=== PATIENT | male | born 1945 | race Caucasian/White ===

== ENCOUNTER 2017-01-25 23:30 | Inpatient (IN) | payer MEDICARE, OTHER ==
[~2017-01-25] VITALS: Ht 188 cm; Wt 125.4 kg
[~2017-01-25 23:30] MED LIST: AMLO10 PO; CALTTAB2 PO; COMBAER INH; CYANCRY6 SQ; FORACAP INH; LANTUSP SQ; MONT10TA2 PO; POTA-243 PO; PRED5 PO; PROT40TA PO; THEO300T11 PO; VITA400C28 PO
[2017-01-25 23:36] VITALS: BP 158/74; PULSE 106; RESP 18; TEMP 98.7; O2SAT 90; O2SAT 96
[2017-01-25] MEDS ORDERED: AMLO10TA2 PO (23:49)
[2017-01-25] MEDS ORDERED: PROT40TA PO (23:49)
[2017-01-25] MEDS ORDERED: IPRAAER INH (23:49)
[2017-01-25] MEDS ORDERED: CYAN1000P SQ (23:49)
[2017-01-25] MEDS ORDERED: POTA10TA8 PO (23:49)
[2017-01-25] MEDS ORDERED: CALTTAB PO (23:49)
[2017-01-25] MEDS ORDERED: MONT10TA2 PO (23:49)
[2017-01-25] MEDS ORDERED: FORM20NE INH (23:49)
[2017-01-25] MEDS ORDERED: THEO300T4 PO (23:49)
[2017-01-25] MEDS ORDERED: VITA400T2 PO (23:49)
[2017-01-25] MEDS ORDERED: PRED5TAB PO (23:49)
[2017-01-26] VITALS (18 sets, daily range): BP systolic 141–165; BP diastolic 64–77; PULSE 73–96; RESP 18–23; TEMP 98.2–98.9; O2SAT 90–95
--- NOTE | 2017-01-26 00:25 | PD ---
HPI Chief Complaint: General Weakness Time Seen by Provider: 00:13 Travel History International Travel<30 days: No Contact w/Intl Traveler<30days: No Traveled to known affect area: No History of Present Illness HPI 71-year-old male complains of shortness of breath. Patient has history of COPD. Patient is a smoker. Patient states that he started having shortness of breath for the past several days. Patient states that the shortness of breath got progressively worse since then. Patient states that he has an inhaler and nebulizer machine at home. Patient used inhaler once in a while and last use of nebulizer machine was yesterday. Patient states that he hasn't intermittent dry cough. Patient denies any fever chills. Patient denies any headache. Patient denies any chest pain. Patient denies abdominal pain. Patient denies any focal weakness or numbness of extremity. Patient complained of generalized malaise and weakness. Patient had a near syncopal episode tonight at home. PFSH Past Medical History Arthritis: No Asthma: No Autoimmune Disease: No Blood Disorders: No Anxiety: No Depression: No Heart Rhythm Problems: No Cancer: Yes (PROSTATE) Cardiovascular Problems: No High Cholesterol: No Chemotherapy: No Chest Pain: No Congestive Heart Failure: No COPD: Yes Cerebrovascular Accident: No Diabetes: No Diminished Hearing: No Endocrine: No Gastrointestinal Disorders: Yes GERD: No Glaucoma: No Genitourinary: No Headaches: No Hepatitis: No Hiatal Hernia: No Hypertension: Yes Immune Disorder: No Kidney Stones: No Musculoskeletal: Yes (SPINE SURGERY. LEFT KNEE SURGERY) Neurologic: No Psychiatric: No Reproductive: No Respiratory: Yes Migraines: No Myocardial Infarction: No Radiation Therapy: Yes (01/2009) Renal Failure: No Seizures: No Sickle Cell Disease: No Sleep Apnea: No Thyroid Disease: No Ulcer: No PNEUMOCCOCAL Vaccine (Year): 2007 Past Surgical History Abdominal Surgery: No AICD: No Appendectomy: No Arteriovenous Shunt: No Cardiac Surgery: No Cholecystectomy: No Ear Surgery: No Endocrine Surgery: No Eye Surgery: No Genitourinary Surgery: No Gynecologic Surgery: No Insulin Pump: No Joint Replacement: No Oral Surgery: No Pacemaker: No Thoracic Surgery: No Social History Alcohol Use: No Tobacco Use: Yes (6 CIGS/DAY) Substance Use: No Allergies-Medications (Allergen,Severity, Reaction): Coded Allergies: VIKY Inhibitors (Verified Allergy, Severe, ANGIOEDEMA, 4/20/17) Felodipine (Verified Allergy, Severe, Anaphylaxis, 01/25/17) Hytrin (Verified Allergy, Severe, Anaphylaxis, 01/25/17) Lisinopril (Verified Allergy, Severe, Anaphylaxis, 01/25/17) Reported Meds & Prescriptions Reported Meds & Active Scripts Active Reported Caltrate 600+D (Calcium Carbonate-Cholecalciferol) 600-800 Mg-Unit Tab 1 Tab PO BID Theophylline CR (Theophylline) 300 Mg Tab 300 Mg PO DAILY Prednisone 5 Mg Tab 5 Mg PO DAILY Potassium Chloride CR (Potassium Chloride) 10 Meq Tab 10 Meq PO DAILY Protonix (Pantoprazole Sodium) 40 Mg Tab 40 Mg PO DAILY Singulair (Montelukast Sodium) 10 Mg Tab 10 Mg PO HS Combivent Respimat Inh (Ipratropium-Albuterol Inh) 20-100 Jail/Act Aero 2 Puff INH BID Perforomist Neb (Formoterol Fumarate) 20 Mcg/2 Ml Neb 1 Nebule INH BID Cyanocobalamin Inj (Cyanocobalamin) 1,000 Mcg/Ml Inj 1,000 Mcg SQ Q30D Vitamin D (Cholecalciferol) 400 Unit Tab 400 Mg PO DAILY Amlodipine (Amlodipine Besylate) 10 Mg Tab 10 Mg PO DAILY Review of Systems General / Constitutional: No: Fever Eyes: No: Visual changes HENT: No: Headaches Cardiovascular: No: Chest Pain or Discomfort Respiratory: Positive: Cough, Shortness of Breath, Wheezing Gastrointestinal: No: Abdominal Pain Genitourinary: No: Dysuria Musculoskeletal: No: Pain Skin: No Rash Neurologic: No: Weakness Psychiatric: No: Depression Endocrine: No: Polydipsia Hematologic/Lymphatic: No: Easy Bruising Physical Exam Narrative GENERAL: Well-nourished, well-developed patient. SKIN: Focused skin assessment warm/dry. HEAD: Normocephalic. EYES: No scleral icterus. No injection or drainage. NECK: Supple, trachea midline. No JVD or lymphadenopathy. CARDIOVASCULAR: Regular rate and rhythm without murmurs, gallops, or rubs. RESPIRATORY: Breath sounds equal bilaterally. No accessory muscle use. Patient has moderate expiratory wheezes bilaterally. No rhonchi. GASTROINTESTINAL: Abdomen soft, non-tender, nondistended. MUSCULOSKELETAL: No cyanosis, or edema. BACK: Nontender without obvious deformity. No CVA tenderness. Neurologic exam normal. Data Data Last Documented VS Vital Signs Date Time Temp Pulse Resp B/P Pulse Ox O2 Delivery O2 Flow Rate FiO2 01/26/17 00:33 92 Nasal Cannula 3.00 01/25/17 23:36 98.7 106 18 158/74 Orders Complete Blood Count With Diff (01/26/17 00:19) Comprehensive Metabolic Panel (01/26/17 00:19) B-Type Natriuretic Peptide (01/26/17 00:19) Act Partial Throm Time (Ptt) (01/26/17 00:19) Prothrombin Time / Inr (Pt) (01/26/17:19) Urinalysis - C+S If Indicated (01/26/17:) Influenzae A/B Antigen (01/26/17:) Blood Culture (01/26/17:19) Iv Access Insert/Monitor (01/26/17:19) Ecg Monitoring (01/26/17:) Oximetry (01/26/17:19) Oxygen Administration (01/26/17:) Chest, Single Ap (01/26/17:19) Methylprednisolone So Succ Inj (Solumedr (01/26/17 00:30) Albuterol-Ipratropium Neb (Duoneb Neb) (01/26/17 00:30) Lactic Acid (01/26/17 00:19) Vancomycin Inj (Vancomycin Inj) (01/26/17 01:15) Piperacil-Tazo 3.375 Gm Premix (Zosyn 3. (01/26/17 01:15) Oseltamivir (Tamiflu) (01/26/17 01:30) Labs Laboratory Tests Test 01/26/17 00:24 White Blood Count 12.0 TH/MM3 Red Blood Count 4.87 MIL/MM3 Hemoglobin 14.8 GM/DL Hematocrit 44.5 % Mean Corpuscular Volume 91.3 FL Mean Corpuscular Hemoglobin 30.4 PG Mean Corpuscular Hemoglobin 33.3 % Concent Red Cell Distribution Width 14.2 % Platelet Count 204 TH/MM3 Mean Platelet Volume 8.8 FL Neutrophils (%) (Auto) 74.1 % Lymphocytes (%) (Auto) 13.6 % Monocytes (%) (Auto) 10.2 % Eosinophils (%) (Auto) 1.7 % Basophils (%) (Auto) 0.4 % Neutrophils # (Auto) 8.9 TH/MM3 Lymphocytes # (Auto) 1.6 TH/MM3 Monocytes # (Auto) 1.2 TH/MM3 Eosinophils # (Auto) 0.2 TH/MM3 Basophils # (Auto) 0.1 TH/MM3 CBC Comment DIFF FINAL Differential Comment Prothrombin Time 10.8 SEC Prothromb Time International 1.0 RATIO Ratio Activated Partial 26.7 SEC Thromboplast Time Sodium Level 142 MEQ/L Potassium Level 3.6 MEQ/L Chloride Level 106 MEQ/L Carbon Dioxide Level 24.1 MEQ/L Anion Gap 12 MEQ/L Blood Urea Nitrogen 21 MG/DL Creatinine 1.68 MG/DL Estimat Glomerular Filtration 40 ML/MIN Rate Random Glucose 92 MG/DL Lactic Acid Level 5.3 mmol/L Calcium Level 9.1 MG/DL Total Bilirubin 0.2 MG/DL Aspartate Amino Transf 14 U/L (AST/SGOT) Alanine Aminotransferase 13 U/L (ALT/SGPT) Alkaline Phosphatase 94 U/L Total Protein 7.3 GM/DL Albumin 3.4 GM/DL MDM Medical Decision Making Medical Screen Exam Complete: Yes Emergency Medical Condition: Yes Interpretation(s) 12:24 AM. EKG shows sinus tachycardia rate 102. Right bundle branch block. 1:19 AM. Last Impressions Chest X-Ray 01/26/17 0019 Signed Impressions: Service Date/Time: Thursday, January 26, 2017 00:18 - CONCLUSION: Right lower lobe infiltrate. Marty Brown Jr., MD 1:19 AM. CBC WBC 12.0. 74 neutrophil. BUN 21. Creatinine 1.68. Lactic acid 5.3. Patient's positive for influenza A antigen. Differential Diagnosis Differential diagnosis including acute exacerbation of COPD, bronchitis, pneumonia, PE, pneumothorax. Narrative Course 71-year-old male with coughing, shortness of breath and wheezing. History of COPD. Patient was given albuterol treatment 2 by EMS. Albuterol with Atrovent unit dose treatment 2. Solu-Medrol 125 mg IV. Vancomycin 1 g IV. Zosyn 3.375 g IV. Zithromax 500 mg IV. Tamiflu 75 mg by mouth. Normal saline solution 2 L IV bolus. Diagnosis Primary Impression: Pneumonia Qualified Code: J18.1 - Pneumonia of right lower lobe due to infectious organism Additional Impressions: Flu Sepsis Qualified Code: A41.9 - Sepsis, due to unspecified organism Renal insufficiency Admitting Information Admitting Physician Requests: Admit Jose Roberto Mon MD Jan 26, 2017 00:25
[2017-01-26] MEDS ORDERED: methylPREDNISolone SOD SUCC 125 MG/2 ML VIAL IVP ONE (00:30)
[2017-01-26] MEDS: RESP: ALBUTEROL 2.5 MG/IPRATROPIUM 0.5 MG NEB (SCH) INH ×6 (00:37→21:30)
[2017-01-26 00:42] LABS: AUTOMATED NEUTROPHIL # 8.9 TH/MM3 (1.8-7.7); BASOPHIL # 0.1 TH/MM3 (0-0.2); BASOPHIL % 0.4 % (0.0-2.0); EOSINOPHIL # 0.2 TH/MM3 (0-0.4); EOSINOPHIL % 1.7 % (0.0-4.0); HEMATOCRIT 44.5 % (39.0-51.0); HEMO FLAGS DIFF FINAL; LYMPH % 13.6 % (9.0-44.0); LYMPHOCYTE # 1.6 TH/MM3 (1.0-4.8); MEAN CELL VOLUME 91.3 FL (80.0-100.0); MEAN CORPUSCULAR HEMOGLOBIN 30.4 PG (27.0-34.0); MEAN CORPUSCULAR HGB CONC 33.3 % (32.0-36.0); MONO % 10.2 % (0.0-8.0); NEUT % 74.1 % (16.0-70.0); PLATELET COUNT 204 TH/MM3 (150-450); RED BLOOD COUNT 4.87 MIL/MM3 (4.50-5.90); RED CELL DISTRIBUTION WIDTH 14.2 % (11.6-17.2)
[2017-01-26 01:05] LABS: APTT (PATIENT) 26.7 SEC (24.3-30.1); PROTHROMBIN TIME - PATIENT 10.8 SEC (9.8-11.6)
--- NOTE | 2017-01-26 01:05 | RADRPT ---
EXAM DATE/TIME: 01/26/2017 00:18 [place] COMPARISON: CHEST SINGLE AP, September 29, 2011, 10:17. INDICATIONS : Shortness of breath. MEDICAL HISTORY : None. SURGICAL HISTORY : None. ENCOUNTER: Initial ACUITY: 1 day PAIN SCORE: 0/10 LOCATION: chest FINDINGS: 2 portable frontal views of the chest show an intra-alveolar infiltrate within the right lung base. L eft lung is clear. No effusions. Heart is mildly enlarged but stable. CONCLUSION: Right lower lobe infiltrate. Marty Brown Jr., MD on January 26, 2017 at 1:04 Board Certified Radiologist. This report was verified electronically.
[2017-01-26] MEDS ORDERED: PIPERACIL-TAZO 3.375 GM PREMIX 50 ML IV ONE (01:15)
[2017-01-26] MEDS ORDERED: VANCOMYCIN INJ 1,000 MG in SODIUM CHLOR 0.9% 250 ML INJ 250 ML IV ONE ×2 (01:15→03:00)
[2017-01-26 01:19] LABS: ALT (GPT) 13 U/L (12-78); ANION GAP 12 MEQ/L (5-15); AST (GOT) 14 U/L (15-37); BICARBONATE 24.1 MEQ/L (21.0-32.0); BLOOD UREA NITROGEN 21 MG/DL (7-18); CHLORIDE 106 MEQ/L (98-107); GLOMERULAR FILTRATION RATE 40 ML/MIN (>89); POTASSIUM 3.6 MEQ/L (3.5-5.1); SODIUM (NA) 142 MEQ/L (136-145)
[2017-01-26 01:21] LABS: ALKALINE PHOSPHATASE 94 U/L (45-117); TOTAL BILIRUBIN ADULT 0.2 MG/DL (0.2-1.0)
[2017-01-26] MEDS ORDERED: OSELTAMIVIR PHOSPHATE 75 MG CAP PO ONE (01:30)
[2017-01-26] MEDS ORDERED: AZITHROMYCIN INJ 500 MG in SODIUM CHLOR 0.9% 250 ML INJ 250 ML IV ONE (01:30)
[2017-01-26] MEDS ORDERED: SODIUM CHLOR 0.9% 1000 ML INJ 1,000 ML IV ONE ×5 (01:30→02:18)
[2017-01-26] MEDS ORDERED: SODIUM CHLOR 0.9% 1000 ML INJ 300 ML IV ONE (02:18)
[2017-01-26] MEDS ORDERED: Vancomycin Consult Pharmacy 1 EA OTHER SCH (02:30)
[2017-01-26] MEDS ORDERED: CHLORHEXIDINE GLUCONATE 2 % 1 PACK (2 CLOTHS) TOP PRN (02:30)
[2017-01-26] MEDS ORDERED: SODIUM CHLORIDE 0.9% FLUSH 10 ML FLUSH IV FLUSH PRN (02:30)
[2017-01-26] MEDS ORDERED: MISCELLANEOUS NURSING INFORMATION XX SCH (02:30)
[2017-01-26] MEDS ORDERED: CYAN100015 BUCCAL (02:38)
[2017-01-26] MEDS ORDERED: GLIP10TA6 PO (02:38)
[2017-01-26] MEDS ORDERED: METO10TA PO (02:38)
[2017-01-26] MEDS ORDERED: CRANCAP2 PO (02:38)
[2017-01-26] MEDS ORDERED: HYDR25TA5 PO (02:38)
[2017-01-26] MEDS ORDERED: SYMB80AE INH (02:40)
--- NOTE | 2017-01-26 02:54 | HHI.HP ---
[facility] Service Critical Care Medicine Primary Care Physician [facility] Admission Diagnosis pneumonia. Sepsis. Renal insufficiency. Flu Diagnosis: Travel History International Travel<30 Days: No Contact w/Intl Traveler <30 Da: No Traveled to Known Affected Are: No History of Present Illness 71-year-old male with history of COPD complains of shortness of breath. Patient has started having shortness of breath for the past several days. Patient states that the shortness of breath got progressively worse since then so he could barely continue to smoke. Patient states that he has an inhaler and nebulizer machine at home and he used inhaler once in a while and last use of nebulizer machine was yesterday. He also has intermittent dry cough but he denies any fever chills. Review of Systems Constitutional: DENIES: Diaphoretic episodes, Fatigue, Fever, Weight gain, Weight loss, Chills, Dizziness, Change in appetite, Night Sweats Endocrine: DENIES: Heat/cold intolerance, Polydipsia, Polyuria, Polyphagia Eyes: DENIES: Blurred vision, Diplopia, Eye inflammation, Eye pain, Vision loss , Photosensitivity, Double Vision Ears, nose, mouth, throat: DENIES: Tinnitus, Hearing loss, Vertigo, Nasal discharge, Oral lesions, Throat pain, Hoarseness, Ear Pain, Running Nose, Epistaxis, Sinus Pain, Toothache, Odynophagia Respiratory: COMPLAINS OF: Cough, Shortness of breath, DENIES: Apneas, Snoring , Wheezing, Hemoptysis, Sputum production Cardiovascular: DENIES: Chest pain, Palpitations, Syncope, Dyspnea on Exertion , PND, Lower Extremity Edema, Orthopnea, Claudication Gastrointestinal: DENIES: Abdominal pain, Black stools, Bloody stools, Constipation, Diarrhea, Nausea, Vomiting, Difficulty Swallowing, Anorexia Genitourinary: DENIES: Sexual dysfunction, Urinary frequency, Urinary incontinence, Urgency, Hematuria, Dysuria, Nocturia, Penile Discharge, Testicular Pain, Testicular Swelling Musculoskeletal: DENIES: Joint pain, Muscle aches, Stiffness, Joint Swelling, Back pain, Neck pain Integumentary: DENIES: Abnormal pigmentation, Nail changes, Pruritus, Rash Hematologic/lymphatic: DENIES: Bruising, Lymphadenopathy Immunologic/allergic: DENIES: Eczema, Urticaria Neurologic: DENIES: Abnormal gait, Headache, Localized weakness, Paresthesias, Seizures, Speech Problems, Tremor, Poor Balance Psychiatric: DENIES: Anxiety, Confusion, Mood changes, Depression, Hallucinations, Agitation, Suicidal Ideation, Homicidal Ideation, Delusions Past Family Social History Allergies: Coded Allergies: VIKY Inhibitors (Verified Allergy, Severe, ANGIOEDEMA, 01/25/17) Felodipine (Verified Allergy, Severe, Anaphylaxis, 01/25/17) Hytrin (Verified Allergy, Severe, Anaphylaxis, 01/25/17) Lisinopril (Verified Allergy, Severe, Anaphylaxis, 01/25/17) Past Medical History COPD Tobacco use disorder - active smoker History of noncompliance Morbid obesity Gastroparesis Congestive heart failure - per nursing report Past Surgical History Spine surgery Left knee arthroplasty Prostatectomy Reported Medications Reported Meds & Active Scripts Active Reported Symbicort Inh (Budesonide/Formoterol Fumarate) 80-4.5 Mcg/Act Aero 1 Puff INH Q12HR Cranberry Urinary Comfort (Vitamins C & E) 1 Cap 1 Cap PO DAILY B-12 (Cyanocobalamin) 1,000 Mcg Lozg 1,000 Mcg BUCCAL DAILY Hydrochlorothiazide 25 Mg Tab 25 Mg PO DAILY Glipizide 10 Mg Tab 10 Mg PO BID Take 30 minutes before a meal Metoclopramide (Metoclopramide HCl) 10 Mg Tab 10 Mg PO QHSAC Caltrate 600+D (Calcium Carbonate-Cholecalciferol) 600-800 Mg-Unit Tab 1 Tab PO BID Theophylline CR (Theophylline) 300 Mg Tab 300 Mg PO DAILY Prednisone 5 Mg Tab 5 Mg PO DAILY Potassium Chloride CR (Potassium Chloride) 10 Meq Tab 10 Meq PO DAILY Protonix (Pantoprazole Sodium) 40 Mg Tab 40 Mg PO DAILY Singulair (Montelukast Sodium) 10 Mg Tab 10 Mg PO HS Combivent Respimat Inh (Ipratropium-Albuterol Inh) 20-100 Snf/Act Aero 2 Puff INH BID Perforomist Neb (Formoterol Fumarate) 20 Mcg/2 Ml Neb 1 Nebule INH BID Vitamin D (Cholecalciferol) 400 Unit Tab 400 Mg PO DAILY Amlodipine (Amlodipine Besylate) 10 Mg Tab 10 Mg PO DAILY Active Ordered Medications Current Medications Medications (Trade) Dose Ordered Sig/Larissa Route PRN Reason Start Time Stop Time Status Last Admin Dose Admin Sodium Chloride (NS 1000 ml Inj) 1,000 ml @ 75 mls/hr [id number] IV 01/26/17 03:00 01/26/17 03:50 Sodium Chloride (NS Flush) 2 ml UNSCH PRN IV FLUSH FLUSH AFTER USING IV ACCESS 01/26/17 02:30 Sodium Chloride (NS Flush) 2 ml BID IV FLUSH 01/26/17 09:00 Hydrocortisone Sodium Succinate (SoluCORTEF INJ) 50 mg Q6H IV 01/26/17 03:00 01/26/17 03:49 Famotidine (Pepcid Inj) 20 mg DAILY IV PUSH 01/26/17 09:00 Heparin Sodium (Porcine) 5000 units 5,000 units Q8H SQ 01/26/17 06:00 Pharmacy Profile Note 0 ml @ 0 mls/hr UNSCH OTHER 01/26/17 02:30 Piperacillin Sod/ Tazobactam Sod 100 ml @ 200 mls/hr Q6H IV 01/26/17 08:00 Azithromycin/ Sodium Chloride (Zithromax Inj/ NS 250 ml Inj) 250 ml @ 250 mls/hr Q24H IV 01/27/17 02:00 Oseltamivir Phosphate (Tamiflu) 75 mg Q24H PO 01/27/17 02:30 02/05/17 02:29 Miscellaneous Information 1 [id number] XX 01/26/17 02:30 Chlorhexidine Gluconate (Chlorhexidine 2% Cloth) 3 pack Taper DAILY@04 TOP 01/26/17 04:00 01/22/18 03:59 01/26/17 04:00 Chlorhexidine Gluconate (Chlorhexidine 2% Cloth) 3 pack UNSCH PRN TOP HYGIENIC CARE 01/26/17 02:30 Budesonide/ Formoterol Fumarate (Symbicort 80-4.5 Mcg Inh) 1 puff Q12HR INH 01/26/17 09:00 Montelukast Sodium (Singulair) 10 mg HS PO 01/26/17 21:00 Theophylline (Theochron) 300 mg DAILY PO 01/26/17 09:00 Cyanocobalamin (Vitamin B12) 1,000 mcg DAILY PO 01/26/17 09:00 Non-Formulary Medication 1 nebule BID INH COPD 01/26/17 09:00 UNV Tiotropium Amado (Spiriva Inh) 18 mcg DAILY INH 01/26/17 09:00 Albuterol Sulfate (Ventolin Hfa Inh) 2 puff QID INH 01/26/17 09:00 Family History Noncontributory Social History Active smoker 1 pack per day No alcohol or illicit drug abuse Physical Exam Vital Signs Vital Signs Date Time Temp Pulse Resp B/P Pulse Ox O2 Delivery O2 Flow Rate FiO2 01/26/17 02:30 96 18 142/64 93 Nasal Cannula 3 01/26/17 01:56 93 Nasal Cannula 3 01/26/17 01:56 90 Room Air 01/26/17 00:33 92 Nasal Cannula 3.00 01/26/17 00:30 96 18 141/68 93 Nasal Cannula 3 01/25/17 23:41 91 Nasal Cannula 2 01/25/17 23:38 96 Room Air 01/25/17 23:36 98.7 106 18 158/74 90 Physical Exam GENERAL: Morbidly obese elderly man in no acute distress on nasal cannula SKIN: Warm and dry. HEAD: Normocephalic. EYES: No scleral icterus. No injection or drainage. NECK: Supple, trachea midline. No JVD or lymphadenopathy. CARDIOVASCULAR: Regular rate and rhythm without murmurs, gallops, or rubs. RESPIRATORY: Breath sounds equal bilaterally. No accessory muscle use. GASTROINTESTINAL: Abdomen soft, non-tender, nondistended. MUSCULOSKELETAL: No cyanosis, or edema. BACK: Nontender without obvious deformity. No CVA tenderness. EXTREMITIES: No clubbing cyanosis or edema Laboratory Laboratory Tests Test 01/26/17 00:24 White Blood Count 12.0 Red Blood Count 4.87 Hemoglobin 14.8 Hematocrit 44.5 Mean Corpuscular Volume 91.3 Mean Corpuscular Hemoglobin 30.4 Mean Corpuscular Hemoglobin 33.3 Concent Red Cell Distribution Width 14.2 Platelet Count 204 Mean Platelet Volume 8.8 Neutrophils (%) (Auto) 74.1 Lymphocytes (%) (Auto) 13.6 Monocytes (%) (Auto) 10.2 Eosinophils (%) (Auto) 1.7 Basophils (%) (Auto) 0.4 Neutrophils # (Auto) 8.9 Lymphocytes # (Auto) 1.6 Monocytes # (Auto) 1.2 Eosinophils # (Auto) 0.2 Basophils # (Auto) 0.1 CBC Comment DIFF FINAL Differential Comment Prothrombin Time 10.8 Prothromb Time International 1.0 Ratio Activated Partial 26.7 Thromboplast Time Sodium Level 142 Potassium Level 3.6 Chloride Level 106 Carbon Dioxide Level 24.1 Anion Gap 12 Blood Urea Nitrogen 21 Creatinine 1.68 Estimat Glomerular Filtration 40 Rate Random Glucose 92 Lactic Acid Level 5.3 Calcium Level 9.1 Total Bilirubin 0.2 Aspartate Amino Transf 14 (AST/SGOT) Alanine Aminotransferase 13 (ALT/SGPT) Alkaline Phosphatase 94 B-Type Natriuretic Peptide 27 Total Protein 7.3 Albumin 3.4 Date/Time Procedure Status Source Growth 01/26/17 00:24 Aerobic Blood Culture Received Blood Peripheral Pending 01/26/17 00:24 Anaerobic Blood Culture Received Blood Peripheral Pending 01/26/17 00:20 Influenza Types A,B Antigen (RUBI) - Final Complete Nasal Washing Positive For Flu A Antigen Result Diagram: 01/26/17 0024 01/26/17 0024 Imaging Last 24 hours Impressions Chest X-Ray 01/26/17 0019 Signed Impressions: Service Date/Time: Thursday, January 26, 2017 00:18 - CONCLUSION: Right lower lobe infiltrate. Marty Brown Jr., MD Assessment and Plan Assessment and Plan Respiratory failure - Due to COPD exacerbation - Due to Pneumonia - Broad-spectrum antibiotics - Pulmonary consultation - O2 nasal cannula to keep sats above 90 - Frequent ABGs COPD exacerbation - Nebulizer treatment - IV Steroid - Follow-up on cultures Pneumonia - Zosyn and vancomycin azithromycin - Repeat CXR a.m. - Follow-up cultures History of CHF - Monitor for fluid overload - Strict blood pressure control DVT GI prophylaxis - Subcutaneous heparin and Pepcid Critical Care: The total critical care time was 35 minutes. Time to perform other separately billable procedures was not included in the critical care time. Sami Wesley MD Jan 26, 2017 02:54
[2017-01-26] MEDS ORDERED: HYDROCORTISONE SOD SUCCINATE 100 MG VIAL IV SCH (03:00)
[2017-01-26] MEDS: SODIUM CHLOR 0.9% 1000 ML INJ 1,000 ML IV SCH ×2 (03:50→20:22)
[2017-01-26] MEDS: CHLORHEXIDINE GLUCONATE 2 % 1 PACK (2 CLOTHS) TOP SCH (04:00)
[2017-01-26] MEDS: HEPARIN SODIUM - SQ 10,000 UNITS/ML VIAL SQ SCH ×3 (05:58→21:08)
[2017-01-26] MEDS ORDERED: methylPREDNISolone SOD SUCC 125 MG/2 ML VIAL IV PUSH STA (08:13)
[2017-01-26] MEDS ORDERED: predniSONE 5 MG TAB PO SCH (09:00)
[2017-01-26] MEDS ORDERED: TIOTROPIUM BROMIDE 18 MCG INH INH SCH (09:00)
[2017-01-26] MEDS ORDERED: NON-FORMULARY DRUG (Formoterol Neb (Perforomist Neb) 1 NEBULE) INH SCH (09:00)
[2017-01-26] MEDS ORDERED: BUDESONIDE-FORMOTEROL 80/4.5 MCG INHALER INH SCH (09:00)
[2017-01-26] MEDS: PIPERACIL-TAZO 4.5 GM PREMIX 100 ML IV SCH ×3 (09:11→21:08)
[2017-01-26] MEDS: THEOPHYLLINE ER 12 HR 300 MG TABCR PO SCH (09:11)
[2017-01-26] MEDS: FAMOTIDINE 20 MG/2 ML VIAL IV PUSH SCH (09:11)
[2017-01-26] MEDS: CYANOCOBALAMIN 1,000 MCG TAB PO SCH (09:11)
[2017-01-26] MEDS: SODIUM CHLORIDE 0.9% FLUSH 10 ML FLUSH IV FLUSH SCH ×2 (09:12→21:00)
[2017-01-26] MEDS: ALBUTEROL SULFATE 90 MCG/ACT HFA 18 GM INHALER INH SCH ×2 (09:15→13:29)
[2017-01-26 09:38] LABS: BLOOD, URINE MOD (NEG); COMMENT (UR) CULT NOT INDICATED; CULTURE IF INDICATED CULT NOT INDICATED; GLUCOSE,URINE NEG (NEG); HYALINE CAST, URINE 6 /lpf (RARE); KETONE, URINE NEG (NEG); MUCUS URINE FEW /lpf (OCC); NITRITE,URINE NEG (NEG); URINE COLOR YELLOW (YELLW/STRAW)
--- NOTE | 2017-01-26 12:27 | PD.ID.CON ---
History of Present Illness Service ID Consult Requested By Dr Wesley Reason for Consult severe sepsis Primary Care Physician [facility] Diagnoses: History of Present Illness 71 yo w COPD and tobaccoism + 1ppd Pt was sick x 1 day with fever, SOB, dry cough He presented with above complaints to [facility] and was admitted to ICU, but not required intubation He remained on NC O2 the whole time He tested + for influenza A He reports not having a flu shot this year; he also reports sick exposure @ home (sister -in-law) with flu likel smx Pt's CXR with RLL PNA Pt improved and has a transfer order Review of Systems Except as stated in HPI: all other systems reviewed are Neg Past Family Social History Allergies: Coded Allergies: VIKY Inhibitors (Verified Allergy, Severe, ANGIOEDEMA, 01/25/17) Felodipine (Verified Allergy, Severe, Anaphylaxis, 01/25/17) Hytrin (Verified Allergy, Severe, Anaphylaxis, 01/25/17) Lisinopril (Verified Allergy, Severe, Anaphylaxis, 01/25/17) Past Medical History COPD Tobacco use disorder - active smoker History of noncompliance Morbid obesity Gastroparesis Congestive heart failure - per nursing report Past Surgical History Spine surgery Left knee arthroplasty Prostatectomy Active Ordered Medications Medications where reviewed in EMR Antibiotics Include: tamiflu azithro zosyn vanco Family History Non-Contributory. Social History + Tobacco. 1 ppd No ETOH. No Illicit Drugs. Physical Exam Vital Signs Vital Signs Date Time Temp Pulse Resp B/P Pulse Ox O2 Delivery O2 Flow Rate FiO2 01/26/17 12:00 73 01/26/17 12:00 98.5 76 23 159/73 93 01/26/17 10:00 80 01/26/17 08:00 98.6 81 18 157/75 94 01/26/17 08:00 81 01/26/17 07:00 88 01/26/17 07:00 92 Nasal Cannula 4.00 01/26/17 06:00 83 01/26/17 04:30 91 Nasal Cannula 4.00 01/26/17 04:30 85 01/26/17 04:00 98.7 85 18 150/69 94 01/26/17 02:30 96 18 142/64 93 Nasal Cannula 3 01/26/17 01:56 93 Nasal Cannula 3 01/26/17 01:56 90 Room Air 01/26/17 00:33 92 Nasal Cannula 3.00 01/26/17 00:30 96 18 141/68 93 Nasal Cannula 3 01/25/17 23:41 91 Nasal Cannula 2 01/25/17 23:38 96 Room Air 01/25/17 23:36 98.7 106 18 158/74 90 Physical Exam CONSTITUTIONAL/GENERAL: This is an adequately nourished patient, in no apparent distress. TUBES/LINES/DRAINS: SKIN: No jaundice, rashes, or lesions. Skin temperature appropriate. Not diaphoretic. HEAD: Atraumatic. Normocephalic. EYES: Pupils equal and round and reactive. Extraocular motions intact. No scleral icterus. No injection or drainage. Fundi not examined. ENT: Hearing grossly normal. Nose without bleeding or purulent drainage. Throat without visible erythema, exudates, masses, or lesions. NECK: Trachea midline. Supple, nontender. No palpable thyroid enlargement or nodularity. CARDIOVASCULAR: Regular rate and rhythm without murmurs, gallops, or rubs. No JVD. Peripheral pulses symmetric. RESPIRATORY/CHEST: Symmetric, unlabored respirations.Scvattered rhochi to auscultation. Breath sounds equal bilaterally. No wheezes, rales, or rhonchi. GASTROINTESTINAL: Abdomen soft, non-tender, nondistended. No hepato-splenomegaly , or palpable masses. No guarding. Bowel sounds present. GENITOURINARY: Without palpable bladder distension. Salazar catheter in place. MUSCULOSKELETAL: Extremities without clubbing, cyanosis, or edema. No joint tenderness or effusion noted. No calf tenderness. No mottling or clubbing. LYMPHATICS: No palpable cervical or supraclavicular adenopathy. NEUROLOGICAL: Awake and alert. Motor and sensory grossly within normal limits. Follows commands. Normal speech. Moves all extremities. PSYCHIATRIC: No obvious anxiety/depression. no apparent hallucinations or other psychotic thought process. Laboratory Laboratory Tests Test 01/26/17 01/26/17 01/26/17 01/26/17 00:24 02:52 04:28 08:54 White Blood Count 12.0 Red Blood Count 4.87 Hemoglobin 14.8 Hematocrit 44.5 Mean Corpuscular Volume 91.3 Mean Corpuscular Hemoglobin 30.4 Mean Corpuscular Hemoglobin 33.3 Concent Red Cell Distribution Width 14.2 Platelet Count 204 Mean Platelet Volume 8.8 Neutrophils (%) (Auto) 74.1 Lymphocytes (%) (Auto) 13.6 Monocytes (%) (Auto) 10.2 Eosinophils (%) (Auto) 1.7 Basophils (%) (Auto) 0.4 Neutrophils # (Auto) 8.9 Lymphocytes # (Auto) 1.6 Monocytes # (Auto) 1.2 Eosinophils # (Auto) 0.2 Basophils # (Auto) 0.1 CBC Comment DIFF FINAL Differential Comment Prothrombin Time 10.8 Prothromb Time International 1.0 Ratio Activated Partial 26.7 Thromboplast Time Sodium Level 142 Potassium Level 3.6 Chloride Level 106 Carbon Dioxide Level 24.1 Anion Gap 12 Blood Urea Nitrogen 21 Creatinine 1.68 Estimat Glomerular Filtration 40 Rate Random Glucose 92 Lactic Acid Level 5.3 1.7 Calcium Level 9.1 Total Bilirubin 0.2 Aspartate Amino Transf 14 (AST/SGOT) Alanine Aminotransferase 13 (ALT/SGPT) Alkaline Phosphatase 94 B-Type Natriuretic Peptide 27 Total Protein 7.3 Albumin 3.4 Nasal Screen MRSA (PCR) NEGATIVE Urine Color YELLOW Urine Turbidity CLEAR Urine pH 6.0 Urine Specific [place] 1.029 Urine Protein 30 Urine Glucose (UA) NEG Urine Ketones NEG Urine Occult Blood MOD Urine Nitrite NEG Urine Bilirubin NEG Urine Urobilinogen LESS THAN 2.0 Urine Leukocyte Esterase NEG Urine RBC 2 Urine WBC 3 Urine Hyaline Casts 6 Urine Mucus FEW Microscopic Urinalysis Comment CULT NOT INDICATED Date/Time Procedure Status Source Growth 01/26/17 00:24 Aerobic Blood Culture Received Blood Peripheral Pending 01/26/17 00:24 Anaerobic Blood Culture Received Blood Peripheral Pending 01/26/17 00:20 Influenza Types A,B Antigen (RUBI) - Final Complete Nasal Washing Positive For Flu A Antigen Result Diagram: 01/26/17 0024 01/26/17 0024 Imaging Last Impressions Chest X-Ray 01/26/17 0019 Signed Impressions: Service Date/Time: Thursday, January 26, 2017 00:18 - CONCLUSION: Right lower lobe infiltrate. Marty Brown Jr., MD Assessment and Plan Assessment and Plan RLL PNA Flu A cont tamiflu - cont broad spectrum abx - fu blood and sputum clx Zonia Ram MD Jan 26, 2017 12:27
[2017-01-26] MEDS: methylPREDNISolone SOD SUCC 125 MG/2 ML VIAL IV PUSH SCH ×2 (13:30→21:08)
[2017-01-26] MEDS: INSULIN ASPART SUPPLEMENTAL SCALE SQ SCH ×2 (13:52→17:55)
[2017-01-26] MEDS ORDERED: DEXTROSE 50% IN WATER 50 ML VIAL(D50) IV PRN (14:00)
[2017-01-26] MEDS ORDERED: GLUCAGON 1 MG/ML VIAL IM/SQ PRN (14:00)
--- NOTE | 2017-01-26 19:34 | EKG ---
Date Performed: 01/25/2017 Time Performed: 23:45:25 PTAGE: 71 years EKG: SINUS TACHYCARDIA RIGHT BUNDLE BRANCH BLOCK LEFT ANTERIOR FASCICULAR BLOCK Compared to prio r tracing no significant change ABNORMAL ECG NO PREVIOUS TRACING DOCTOR: Jun Ureña Interpretating Date/Time 01/30/2017 08:11:01
[2017-01-26] MEDS: MONTELUKAST SODIUM 10 MG TAB PO SCH (21:08)
--- NOTE | 2017-01-26 21:46 | MB ---
cc: DARIUSZ GIL DATE OF CONSULTATION 01/26/[address] Bucio REASON FOR CONSULTATION Pulmonary management. HISTORY OF PRESENT ILLNESS Mr. Norman is a pleasant 71-year-old male with longstanding history of COPD and nicotine use, continues to smoke one pack of cigarettes a day. He came to the hospital with shortness of breath and he had fever. Denied any chest pain. No nausea or vomiting. He took nebulizer treatment, did not get better. He was evaluated in the hospital. His WBC count is 12,000, hemoglobin 14.8, hematocrit 44.5, MCV 91, platelet count of 204, INR 1.0, sodium 142, potassium 3.6, chloride 106, CO2 24, BUN 21, creatinine 1.68, lactic acid 5.3. He is positive for flu A antigen. Chest x-ray shows a right lower lobe infiltrate. PAST MEDICAL HISTORY 1. History of hypertension, 2. Diabetes mellitus, 3. COPD, 4. Nicotine use 5. Gastroparesis 6. Arthroplasty 7. Prostatectomy 8. History of spine surgery. MEDICATIONS Currently taking 1. Vancomycin IV. 2. Tamiflu 75 mg a day. 3. Zithromax 500 mg a day 4. Singulair 10 mg a day 5. Solu-Medrol 80 mg q. 8-hour. 6. Famotidine 20 mg a day. 7. Theophylline 300 mg a day. 8. Zosyn IV. ALLERGIES VIKY INHIBITOR FELODIPINE HYTRIN LISINOPRIL SOCIAL HISTORY He is . He has a long history of smoking, continues to smoke one pack of cigarettes a day. He used to work for [employer] and spent many years in [place]. FAMILY HISTORY He is . He has no children. REVIEW OF SYSTEMS Normally he is up, around and active. No malignancy. No DVT or pulmonary embolism. No seizure, stroke or epilepsy. PHYSICAL EXAMINATION GENERAL: Well-built, well-nourished male mildly short of breath. VITAL SIGNS: Blood pressure 165/77, heart rate 82, respirations 16, temperature 98.9 HEENT: Pupils are equal and reactive to light. Oral mucosa and nasal mucosa normal. NECK: Supple. JVP not raised. CHEST: Equal bilaterally. Has expiratory rhonchi. CARDIOVASCULAR: S1, S2 normal. ABDOMEN: Soft, nondistended. Bowel sounds are present EXTREMITIES: No edema. 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 No focal deficit. IMPRESSION 1. COPD exacerbation 2. Pneumonia. 3. Flu 4. Sepsis. 5. Hypertension 6. Diabetes mellitus 7. Nicotine use. PLAN We will give him IV Solu-Medrol, aerosol treatment with albuterol and Atrovent, Symbicort twice a day. Continue antibiotic per ID recommendation. Continue Tamiflu. Would advise him to quit smoking. Further treatment will depend on the course in the hospital. Thank you, Dr. Bucio, for this consultation. MD SAULO Ignacio/SA /7:25 PM /9:28 PM
[2017-01-27] VITALS (11 sets, daily range): BP systolic 133–161; BP diastolic 63–77; PULSE 68–86; RESP 15–22; TEMP 97.6–98.7; O2SAT 92–96
[2017-01-27] MEDS: AZITHROMYCIN INJ 500 MG in SODIUM CHLOR 0.9% 250 ML INJ 250 ML IV SCH (02:21)
[2017-01-27] MEDS: PIPERACIL-TAZO 4.5 GM PREMIX 100 ML IV SCH ×4 (02:21→20:32)
[2017-01-27] MEDS: OSELTAMIVIR PHOSPHATE 75 MG CAP PO SCH (02:22)
[2017-01-27] MEDS: RESP: ALBUTEROL 2.5 MG/IPRATROPIUM 0.5 MG NEB (SCH) INH ×6 (03:58→20:43)
[2017-01-27] MEDS: CHLORHEXIDINE GLUCONATE 2 % 1 PACK (2 CLOTHS) TOP SCH (04:00)
[2017-01-27] MEDS: VANCOMYCIN INJ 2,000 MG in SODIUM CHLORID 0.9% 500 ML INJ 500 ML IV SCH (04:08)
[2017-01-27 04:24] LABS: AUTOMATED NEUTROPHIL # 10.3 TH/MM3 (1.8-7.7); BASOPHIL % 0.1 % (0.0-2.0); HEMO FLAGS DIFF FINAL; LYMPH % 4.3 % (9.0-44.0); LYMPHOCYTE # 0.5 TH/MM3 (1.0-4.8); MEAN CORPUSCULAR HEMOGLOBIN 30.6 PG (27.0-34.0); MEAN CORPUSCULAR HGB CONC 33.2 % (32.0-36.0); NEUT % 90.6 % (16.0-70.0); PLATELET COUNT 173 TH/MM3 (150-450); RED BLOOD COUNT 4.24 MIL/MM3 (4.50-5.90); WHITE BLOOD COUNT 11.4 TH/MM3 (4.0-11.0)
[2017-01-27 05:15] LABS: ALKALINE PHOSPHATASE 70 U/L (45-117); ALT (GPT) 23 U/L (12-78); ANION GAP 9 MEQ/L (5-15); AST (GOT) 51 U/L (15-37); BICARBONATE 24.1 MEQ/L (21.0-32.0); BLOOD UREA NITROGEN 20 MG/DL (7-18); CHLORIDE 112 MEQ/L (98-107); GLOMERULAR FILTRATION RATE 46 ML/MIN (>89); POTASSIUM 3.6 MEQ/L (3.5-5.1); SODIUM (NA) 145 MEQ/L (136-145); TOTAL BILIRUBIN ADULT 0.1 MG/DL (0.2-1.0)
[2017-01-27] MEDS: methylPREDNISolone SOD SUCC 125 MG/2 ML VIAL IV PUSH SCH ×2 (05:39→20:33)
[2017-01-27] MEDS: HEPARIN SODIUM - SQ 10,000 UNITS/ML VIAL SQ SCH ×3 (05:40→20:33)
[2017-01-27] MEDS: INSULIN ASPART SUPPLEMENTAL SCALE SQ SCH ×5 (06:00→22:54)
--- NOTE | 2017-01-27 06:56 | RADRPT ---
EXAM DATE/TIME: 01/27/2017 05:49 [facility] COMPARISON: CHEST SINGLE AP, January 26, 2017, 0:18. INDICATIONS : Evaluate for pneumonia. MEDICAL HISTORY : Hypertension. Diabetes mellitus type II. Chronic obstructive pulmonary disease. Smoker. SURGICAL HISTORY : None. ENCOUNTER: Subsequent ACUITY: 2 days PAIN SCORE: Non-responsive. LOCATION: Bilateral chest FINDINGS: 2 portable frontal views of the chest show lungs to be hyperaerated. Improving infiltrate within the medial right lung base. Heart is enlarged. No effusions. Chronic interstitial changes noted. CONCLUSION: Improving right lower lobe infiltrate. Marty Brown Jr., MD on January 27, 2017 at 6:54 Board Certified Radiologist. This report was verified electronically.
[2017-01-27] MEDS: CYANOCOBALAMIN 1,000 MCG TAB PO SCH (09:59)
[2017-01-27] MEDS: THEOPHYLLINE ER 12 HR 300 MG TABCR PO SCH (09:59)
[2017-01-27] MEDS: SODIUM CHLORIDE 0.9% FLUSH 10 ML FLUSH IV FLUSH SCH ×2 (10:00→20:33)
[2017-01-27] MEDS: FAMOTIDINE 20 MG/2 ML VIAL IV PUSH SCH (10:00)
--- NOTE | 2017-01-27 15:28 | HHI.IDPN ---
Subjective Subjective Remarks doing better wasnts to go home + dry cough unable to expectorate afebrile on 3 L NC O2 Antibiotics tamiflu aithro zosyn vanco Allergies: Coded Allergies: VIKY Inhibitors (Verified Allergy, Severe, ANGIOEDEMA, 01/25/17) Felodipine (Verified Allergy, Severe, Anaphylaxis, 01/25/17) Hytrin (Verified Allergy, Severe, Anaphylaxis, 01/25/17) Lisinopril (Verified Allergy, Severe, Anaphylaxis, 01/25/17) Objective . Vital Signs Date Time Temp Pulse Resp B/P Pulse Ox O2 Delivery O2 Flow Rate FiO2 01/27/17 12:00 82 01/27/17 12:00 97.9 74 15 138/65 93 01/27/17 10:00 78 01/27/17 08:46 96 Nasal Cannula 3.00 01/27/17 08:00 81 01/27/17 08:00 98.7 68 16 151/76 93 01/27/17 07:00 96 Nasal Cannula 3.50 01/27/17 04:00 98.3 80 20 144/76 95 01/27/17 00:00 98.4 78 20 133/63 96 01/26/17 21:30 91 01/26/17 20:00 94 Nasal Cannula 4.00 01/26/17 20:00 98.2 80 20 155/73 95 01/26/17 18:00 80 01/26/17 16:00 98.9 82 18 165/77 93 01/26/17 16:00 82 01/26/17 01/26/17 01/27/17 15:00 23:00 07:00 Intake Total 800 ml 342 ml 1042 ml Output Total 250 ml 750 ml Balance 550 ml 342 ml 292 ml Intake Oral 100 ml 40 ml IV Total 800 ml 242 ml 1002 ml Output Urine Total 250 ml 750 ml # Voids 1 1 # Bowel Movements 1 1 0 . Laboratory Tests Test 01/26/17 01/27/17 00:24 03:51 White Blood Count 12.0 TH/MM3 11.4 TH/MM3 Red Blood Count 4.87 MIL/MM3 4.24 MIL/MM3 Hemoglobin 14.8 GM/DL 13.0 GM/DL Hematocrit 44.5 % 39.0 % Mean Corpuscular Volume 91.3 FL 92.0 FL Mean Corpuscular Hemoglobin 30.4 PG 30.6 PG Mean Corpuscular Hemoglobin 33.3 % 33.2 % Concent Red Cell Distribution Width 14.2 % 14.0 % Platelet Count 204 TH/MM3 173 TH/MM3 Mean Platelet Volume 8.8 FL 8.6 FL Neutrophils (%) (Auto) 74.1 % 90.6 % Lymphocytes (%) (Auto) 13.6 % 4.3 % Monocytes (%) (Auto) 10.2 % 5.0 % Eosinophils (%) (Auto) 1.7 % 0.0 % Basophils (%) (Auto) 0.4 % 0.1 % Neutrophils # (Auto) 8.9 TH/MM3 10.3 TH/MM3 Lymphocytes # (Auto) 1.6 TH/MM3 0.5 TH/MM3 Monocytes # (Auto) 1.2 TH/MM3 0.6 TH/MM3 Eosinophils # (Auto) 0.2 TH/MM3 0.0 TH/MM3 Basophils # (Auto) 0.1 TH/MM3 0.0 TH/MM3 CBC Comment DIFF FINAL DIFF FINAL Differential Comment Laboratory Tests Test 01/26/17 01/26/17 01/27/17 00:24 02:52 03:51 Sodium Level 142 MEQ/L 145 MEQ/L Potassium Level 3.6 MEQ/L 3.6 MEQ/L Chloride Level 106 MEQ/L 112 MEQ/L Carbon Dioxide Level 24.1 MEQ/L 24.1 MEQ/L Anion Gap 12 MEQ/L 9 MEQ/L Blood Urea Nitrogen 21 MG/DL 20 MG/DL Creatinine 1.68 MG/DL 1.49 MG/DL Estimat Glomerular Filtration 40 ML/MIN 46 ML/MIN Rate Random Glucose 92 MG/DL 215 MG/DL Lactic Acid Level 5.3 mmol/L 1.7 mmol/L Calcium Level 9.1 MG/DL 8.2 MG/DL Total Bilirubin 0.2 MG/DL 0.1 MG/DL Aspartate Amino Transf 14 U/L 51 U/L (AST/SGOT) Alanine Aminotransferase 13 U/L 23 U/L (ALT/SGPT) Alkaline Phosphatase 94 U/L 70 U/L B-Type Natriuretic Peptide 27 PG/ML Total Protein 7.3 GM/DL 6.2 GM/DL Albumin 3.4 GM/DL 2.8 GM/DL Microbiology Date/Time Procedure Status Source Growth 01/26/17 00:20 Influenza Types A,B Antigen (RUBI) - Final Complete Nasal Washing Positive For Flu A Antigen 01/26/17 00:24 Aerobic Blood Culture - Preliminary Resulted Blood Peripheral NO GROWTH IN 1 DAY 01/26/17 00:24 Anaerobic Blood Culture - Preliminary Resulted Blood Peripheral NO GROWTH IN 1 DAY 01/26/17 00:24 Aerobic Blood Culture - Preliminary Resulted Blood Peripheral NO GROWTH IN 1 DAY 01/26/17 00:24 Anaerobic Blood Culture - Preliminary Resulted Blood Peripheral NO GROWTH IN 1 DAY Imaging Last Impressions Chest X-Ray 01/27/17 0000 Signed Impressions: Service Date/Time: Friday, January 27, 2017 05:49 - CONCLUSION: Improving right lower lobe infiltrate. Marty Brown Jr., MD Physical Exam CONSTITUTIONAL/GENERAL: This is an adequately nourished patient, in no apparent distress. TUBES/LINES/DRAINS: SKIN: No jaundice, rashes, or lesions. Skin temperature appropriate. Not diaphoretic. CARDIOVASCULAR: Regular rate and rhythm without murmurs, gallops, or rubs. No JVD. Peripheral pulses symmetric. RESPIRATORY/CHEST: Symmetric, unlabored respirations. Claer to auscultation. GASTROINTESTINAL: Abdomen soft, non-tender, nondistended. No hepato-splenomegaly , or palpable masses. No guarding. Bowel sounds present. GENITOURINARY: Without palpable bladder distension. MUSCULOSKELETAL: Extremities without clubbing, cyanosis, or edema. NEUROLOGICAL: Awake and alert. Motor and sensory grossly within normal limits. Follows commands. Normal speech. Moves all extremities. PSYCHIATRIC: No obvious anxiety/depression. no apparent hallucinations or other psychotic thought process. Assessment & Plan Remarks RLL PNA Flu A Hypoxia cont tamiflu - cont current broad spectrum abx - fu blood clx - obtain sputum clx Zonia Ram MD Jan 27, 2017 15:28
--- NOTE | 2017-01-27 16:58 | HHI.PR ---
Subjective Remarks Patient comfortably lying in bed on O2, stated is still coughing greenish phlegm Afebrile, at the bedside Objective Vitals Vital Signs Date Time Temp Pulse Resp B/P Pulse Ox O2 Delivery O2 Flow Rate FiO2 01/27/17 12:00 82 01/27/17 12:00 97.9 74 15 138/65 93 01/27/17 10:00 78 01/27/17 08:46 96 Nasal Cannula 3.00 01/27/17 08:00 81 01/27/17 08:00 98.7 68 16 151/76 93 01/27/17 07:00 96 Nasal Cannula 3.50 01/27/17 04:00 98.3 80 20 144/76 95 01/27/17 00:00 98.4 78 20 133/63 96 01/26/17 21:30 91 01/26/17 20:00 94 Nasal Cannula 4.00 01/26/17 20:00 98.2 80 20 155/73 95 01/26/17 18:00 80 I/O 01/26/17 01/26/17 01/26/17 01/27/17 01/27/17 01/27/17 07:00 15:00 23:00 07:00 15:00 23:00 Intake Total 324 ml 800 ml 342 ml 1042 ml Output Total 250 ml 750 ml Balance 324 ml 550 ml 342 ml 292 ml Intake Oral 100 ml 40 ml IV Total 324 ml 800 ml 242 ml 1002 ml Output Urine Total 250 ml 750 ml # Voids 1 1 # Bowel Movements 1 1 0 Result Diagram: 01/27/17 0351 01/27/17 0351 Objective Remarks - GENERAL: This is a well-nourished, well-developed patient, in no apparent distress. SKIN: No rashes, warm and dry HEAD: Atraumatic. Normocephalic. EYES: Pupils equal round and reactive. Extraocular motions intact. No scleral icterus. ENT: Nose without bleeding, or drainage, Airway patent. NECK: Trachea midline. Supple CARDIOVASCULAR: Regular rate and rhythm without murmurs, gallops, or rubs. RESPIRATORY: Fair air entry bilaterally. Mild wheezes appreciated GASTROINTESTINAL: Abdomen soft, non-tender, nondistended. Positive bowel sounds MUSCULOSKELETAL: Extremities without clubbing, cyanosis, or edema. Pedal pulses appreciated NEUROLOGICAL: Awake and alert. Moves all extremity. Normal speech.no focal neurological deficit A/P Assessment and Plan 71 years old male transferred from intensive care service to hospitalist service patient came with Respiratory failure due to pneumonia and COPD exacerbation -Continue O2 DuoNeb, Solu-Medrol - Monitor for any fever or worsening hypoxia - Broad-spectrum antibiotics - Pulmonary consultation appreciated COPD exacerbation - Nebulizer treatment - IV Steroid - Follow-up on cultures Pneumonia - Zosyn and vancomycin azithromycin - Repeat CXR a.m. - Follow-up cultures History of CHF - Monitor for fluid overload - Strict blood pressure control DVT GI prophylaxis - Subcutaneous heparin and Pepcid David Ivy MD Jan 27, 2017 16:58
[2017-01-27] MEDS: MONTELUKAST SODIUM 10 MG TAB PO SCH (20:33)
[2017-01-28] VITALS (9 sets, daily range): BP systolic 150–167; BP diastolic 72–94; PULSE 71–79; RESP 18–20; TEMP 97.3–98.1; O2SAT 92–94
[2017-01-28] MEDS: RESP: ALBUTEROL 2.5 MG/IPRATROPIUM 0.5 MG NEB (PRN) NEB (01:21)
[2017-01-28] MEDS: PIPERACIL-TAZO 4.5 GM PREMIX 100 ML IV SCH ×4 (01:41→20:36)
[2017-01-28] MEDS: AZITHROMYCIN INJ 500 MG in SODIUM CHLOR 0.9% 250 ML INJ 250 ML IV SCH (01:42)
[2017-01-28] MEDS: OSELTAMIVIR PHOSPHATE 75 MG CAP PO SCH (02:23)
[2017-01-28] MEDS: VANCOMYCIN INJ 2,000 MG in SODIUM CHLORID 0.9% 500 ML INJ 500 ML IV SCH (03:00)
[2017-01-28] MEDS: CHLORHEXIDINE GLUCONATE 2 % 1 PACK (2 CLOTHS) TOP SCH (04:00)
[2017-01-28] MEDS: INSULIN ASPART SUPPLEMENTAL SCALE SQ SCH ×4 (05:52→22:30)
[2017-01-28] MEDS: HEPARIN SODIUM - SQ 10,000 UNITS/ML VIAL SQ SCH ×3 (05:52→22:27)
[2017-01-28] MEDS: RESP: ALBUTEROL 2.5 MG/IPRATROPIUM 0.5 MG NEB (SCH) INH ×4 (07:18→19:42)
[2017-01-28] MEDS: methylPREDNISolone SOD SUCC 125 MG/2 ML VIAL IV PUSH SCH ×2 (08:18→20:36)
[2017-01-28] MEDS: CYANOCOBALAMIN 1,000 MCG TAB PO SCH (08:18)
[2017-01-28] MEDS: SODIUM CHLORIDE 0.9% FLUSH 10 ML FLUSH IV FLUSH SCH ×2 (08:18→20:36)
[2017-01-28] MEDS: FAMOTIDINE 20 MG/2 ML VIAL IV PUSH SCH (08:18)
[2017-01-28] MEDS: THEOPHYLLINE ER 12 HR 300 MG TABCR PO SCH (10:28)
[2017-01-28] MEDS: SODIUM CHLOR 0.9% 1000 ML INJ 1,000 ML IV SCH ×2 (12:22→12:55)
--- NOTE | 2017-01-28 16:18 | HHI.PR ---
Subjective Remarks Stated he feels better breathing, still coughing, no fever or chills Objective Vitals Vital Signs Date Time Temp Pulse Resp B/P Pulse Ox O2 Delivery O2 Flow Rate FiO2 01/28/17 15:49 97.8 75 18 153/72 93 01/28/17 12:01 97.4 71 18 167/77 92 01/28/17 08:05 97.3 77 18 165/83 93 01/28/17 08:00 79 01/28/17 08:00 Nasal Cannula 3.00 01/28/17 07:20 93 Nasal Cannula 3.00 01/28/17 04:00 97.6 01/28/17 00:00 97.6 73 20 150/94 92 01/27/17 20:45 93 Nasal Cannula 3.00 01/27/17 20:00 73 01/27/17 20:00 97.6 78 22 144/71 93 01/27/17 20:00 Nasal Cannula 3.00 01/27/17 17:19 94 Nasal Cannula 3.00 I/O 01/27/17 01/27/17 01/27/17 01/28/17 01/28/17 01/28/17 07:00 15:00 23:00 07:00 15:00 23:00 Intake Total 1042 ml 452 ml 1226 ml 1203 ml Output Total 750 ml 650 ml 625 ml Balance 292 ml 452 ml 576 ml 578 ml Intake Oral 40 ml 240 ml 720 ml IV Total 1002 ml 452 ml 986 ml 483 ml Output Urine Total 750 ml 650 ml 625 ml # Voids 2 # Bowel Movements 0 0 Result Diagram: 01/27/17 0351 01/27/17 0351 Objective Remarks - GENERAL: This is a well-nourished, well-developed patient, in no apparent distress. SKIN: No rashes, warm and dry HEAD: Atraumatic. Normocephalic. EYES: Pupils equal round and reactive. Extraocular motions intact. No scleral icterus. ENT: Nose without bleeding, or drainage, Airway patent. NECK: Trachea midline. Supple CARDIOVASCULAR: Regular rate and rhythm without murmurs, gallops, or rubs. RESPIRATORY: Fair air entry bilaterally. Mild wheezes appreciated GASTROINTESTINAL: Abdomen soft, non-tender, nondistended. Positive bowel sounds MUSCULOSKELETAL: Extremities without clubbing, cyanosis, or edema. Pedal pulses appreciated NEUROLOGICAL: Awake and alert. Moves all extremity. Normal speech.no focal neurological deficit A/P Assessment and Plan 12/28: Stable continue current care with Solu-Medrol iv antibiotic, creatinine improved 1.68-1.44 A/P: 71 years old male transferred from intensive care service to hospitalist service patient came with Respiratory failure due to pneumonia and COPD exacerbation -Continue O2 DuoNeb, Solu-Medrol - Monitor for any fever or worsening hypoxia - Broad-spectrum antibiotics - Pulmonary consultation appreciated COPD exacerbation - Nebulizer treatment - IV Steroid - Follow-up on cultures Pneumonia - Zosyn and vancomycin azithromycin - Repeat CXR a.m. - Follow-up cultures History of CHF - Monitor for fluid overload - Strict blood pressure control DVT GI prophylaxis - Subcutaneous heparin and Pepcid David Ivy MD Jan 28, 2017 16:18
[2017-01-28] MEDS: MONTELUKAST SODIUM 10 MG TAB PO SCH (20:36)
[2017-01-29] VITALS (8 sets, daily range): BP systolic 142–178; BP diastolic 75–86; PULSE 61–151; RESP 18–20; TEMP 97.5–98.3; O2SAT 92–96
[2017-01-29] MEDS: AZITHROMYCIN INJ 500 MG in SODIUM CHLOR 0.9% 250 ML INJ 250 ML IV SCH (02:18)
[2017-01-29] MEDS ORDERED: PHARMACY ORDERED LAB ONE (02:45)
[2017-01-29] MEDS: OSELTAMIVIR PHOSPHATE 75 MG CAP PO SCH (03:10)
[2017-01-29] MEDS: VANCOMYCIN INJ 2,000 MG in SODIUM CHLORID 0.9% 500 ML INJ 500 ML IV SCH (03:13)
[2017-01-29] MEDS: PIPERACIL-TAZO 4.5 GM PREMIX 100 ML IV SCH ×3 (03:13→12:37)
[2017-01-29] MEDS: CHLORHEXIDINE GLUCONATE 2 % 1 PACK (2 CLOTHS) TOP SCH (04:00)
[2017-01-29 04:13] LABS: VANCOMYCIN TROUGH 11.4 MCG/ML (5.0-10.0)
[2017-01-29] MEDS: RESP: ALBUTEROL 2.5 MG/IPRATROPIUM 0.5 MG NEB (PRN) NEB (05:34)
[2017-01-29] MEDS: HEPARIN SODIUM - SQ 10,000 UNITS/ML VIAL SQ SCH ×3 (05:36→23:16)
[2017-01-29] MEDS: INSULIN ASPART SUPPLEMENTAL SCALE SQ SCH ×4 (05:38→23:16)
[2017-01-29] MEDS: RESP: ALBUTEROL 2.5 MG/IPRATROPIUM 0.5 MG NEB (SCH) INH ×4 (07:42→20:09)
[2017-01-29 08:47] LABS: AUTOMATED NEUTROPHIL # 10.7 TH/MM3 (1.8-7.7); BASOPHIL % 0.2 % (0.0-2.0); HEMATOCRIT 43.1 % (39.0-51.0); LYMPH % 10.2 % (9.0-44.0); LYMPHOCYTE # 1.3 TH/MM3 (1.0-4.8); MEAN CELL VOLUME 92.3 FL (80.0-100.0); MEAN CORPUSCULAR HEMOGLOBIN 30.6 PG (27.0-34.0); MEAN CORPUSCULAR HGB CONC 33.2 % (32.0-36.0); MONO % 5.4 % (0.0-8.0); NEUT % 84.2 % (16.0-70.0); PLATELET COUNT 171 TH/MM3 (150-450); RED BLOOD COUNT 4.67 MIL/MM3 (4.50-5.90); RED CELL DISTRIBUTION WIDTH 14.4 % (11.6-17.2); WHITE BLOOD COUNT 12.7 TH/MM3 (4.0-11.0)
[2017-01-29 08:59] LABS: HEMO FLAGS AUTO DIFF
[2017-01-29] MEDS: THEOPHYLLINE ER 12 HR 300 MG TABCR PO SCH (09:11)
[2017-01-29] MEDS: FAMOTIDINE 20 MG/2 ML VIAL IV PUSH SCH (09:11)
[2017-01-29] MEDS: methylPREDNISolone SOD SUCC 125 MG/2 ML VIAL IV PUSH SCH (09:11)
[2017-01-29] MEDS: CYANOCOBALAMIN 1,000 MCG TAB PO SCH (09:11)
[2017-01-29 09:12] LABS: BICARBONATE 26.8 MEQ/L (21.0-32.0); POTASSIUM 3.9 MEQ/L (3.5-5.1)
[2017-01-29] MEDS: SODIUM CHLORIDE 0.9% FLUSH 10 ML FLUSH IV FLUSH SCH ×2 (09:12→21:00)
[2017-01-29] MEDS: SODIUM CHLOR 0.9% 1000 ML INJ 1,000 ML IV SCH (09:18)
[2017-01-29 09:25] LABS: CORRECTED NUCLEATED RBC 1 /100 WBC (0-0); METAMYELOCYTES 2 % (0-1); MYELOCYTES 1 % (0-0); NEUTROPHIL # MANUAL DIFF 10.4 TH/MM3 (1.8-7.7); POLYS (SEG NEUTROPHILS) 79 % (16-70); WBC DIFF SAMPLE 100
[2017-01-29 09:26] LABS: PLATELET ESTIMATE SMEAR NORMAL (NORMAL); PLATELET MORPHOLOGY NORMAL (NORMAL); SCAN/DIFF FINAL DIFF MANUAL
--- NOTE | 2017-01-29 13:26 | HHI.IDPN ---
Subjective Subjective Remarks doing good wasnts to go home + dry cough unable to expectorate afebrile on 2 L NC O2 Antibiotics tamiflu aithro zosyn vanco Allergies: Coded Allergies: VIKY Inhibitors (Verified Allergy, Severe, ANGIOEDEMA, 01/25/17) Felodipine (Verified Allergy, Severe, Anaphylaxis, 01/25/17) Hytrin (Verified Allergy, Severe, Anaphylaxis, 01/25/17) Lisinopril (Verified Allergy, Severe, Anaphylaxis, 01/25/17) Objective . Vital Signs Date Time Temp Pulse Resp B/P Pulse Ox O2 Delivery O2 Flow Rate FiO2 01/29/17 08:00 151 01/29/17 08:00 Nasal Cannula 2.00 01/29/17 07:44 92 Nasal Cannula 3.00 01/29/17 04:00 98.3 61 18 178/85 92 01/29/17 00:00 97.8 68 18 168/82 92 01/28/17 20:35 Nasal Cannula 3.00 01/28/17 20:00 98.1 73 18 158/83 94 01/28/17 20:00 73 01/28/17 19:43 93 Nasal Cannula 3.00 01/28/17 15:49 97.8 75 18 153/72 93 01/28/17 01/28/17 01/29/17 15:00 23:00 07:00 Intake Total 1203 ml 626 ml 1416 ml Output Total 625 ml 800 ml 1250 ml Balance 578 ml -174 ml 166 ml Intake Oral 720 ml 240 ml 480 ml IV Total 483 ml 386 ml 936 ml Output Urine Total 625 ml 800 ml 1250 ml # Voids 2 # Bowel Movements 0 0 0 . Laboratory Tests Test 01/29/17 07:34 White Blood Count 12.7 TH/MM3 Red Blood Count 4.67 MIL/MM3 Hemoglobin 14.3 GM/DL Hematocrit 43.1 % Mean Corpuscular Volume 92.3 FL Mean Corpuscular Hemoglobin 30.6 PG Mean Corpuscular Hemoglobin 33.2 % Concent Red Cell Distribution Width 14.4 % Platelet Count 171 TH/MM3 Mean Platelet Volume 9.2 FL Neutrophils (%) (Auto) 84.2 % Lymphocytes (%) (Auto) 10.2 % Monocytes (%) (Auto) 5.4 % Eosinophils (%) (Auto) 0.0 % Basophils (%) (Auto) 0.2 % Neutrophils # (Auto) 10.7 TH/MM3 Lymphocytes # (Auto) 1.3 TH/MM3 Monocytes # (Auto) 0.7 TH/MM3 Eosinophils # (Auto) 0.0 TH/MM3 Basophils # (Auto) 0.0 TH/MM3 CBC Comment AUTO DIFF Differential Total Cells 100 Counted Neutrophils % (Manual) 79 % Lymphocytes % 12 % Monocytes % 6 % Neutrophils # (Manual) 10.4 TH/MM3 Metamyelocytes 2 % Myelocytes 1 % Nucleated Red Blood Cells 1 /100 WBC Differential Comment FINAL DIFF MANUAL Platelet Estimate NORMAL Platelet Morphology Comment NORMAL Red Cell Morphology Comment NORMAL Laboratory Tests Test 01/29/17 01/29/17 03:09 07:34 Creatinine 1.21 MG/DL 1.37 MG/DL Estimat Glomerular Filtration 59 ML/MIN 51 ML/MIN Rate Sodium Level 146 MEQ/L Potassium Level 3.9 MEQ/L Chloride Level 109 MEQ/L Carbon Dioxide Level 26.8 MEQ/L Anion Gap 10 MEQ/L Blood Urea Nitrogen 23 MG/DL Random Glucose 154 MG/DL Calcium Level 8.4 MG/DL Imaging Last Impressions Chest X-Ray 01/27/17 0000 Signed Impressions: Service Date/Time: Friday, January 27, 2017 05:49 - CONCLUSION: Improving right lower lobe infiltrate. Marty Brown Jr., MD Physical Exam CONSTITUTIONAL/GENERAL: This is an adequately nourished patient, in no apparent distress. TUBES/LINES/DRAINS: SKIN: No jaundice, rashes, or lesions. Skin temperature appropriate. Not diaphoretic. CARDIOVASCULAR: Regular rate and rhythm without murmurs, gallops, or rubs. No JVD. Peripheral pulses symmetric. RESPIRATORY/CHEST: Symmetric, unlabored respirations. Clear to auscultation. Diminished BS GASTROINTESTINAL: Abdomen soft, non-tender, nondistended. No hepato-splenomegaly , or palpable masses. No guarding. Bowel sounds present. MUSCULOSKELETAL: Extremities without clubbing, cyanosis, or edema. NEUROLOGICAL: Awake and alert. Motor and sensory grossly within normal limits. Follows commands. Normal speech. Moves all extremities. PSYCHIATRIC: calm and cooperative Assessment & Plan Remarks RLL PNA, unable to expectorate Flu A Hypoxia cont tamiflu x 5 days - dc current abx - start levaquine to complete 7 days of tx - fu blood clx - fu with primary and pulmonary pt was instructed to report worsning SOB/cough or new fever OK to dc home from ID standpoint Zonia Ram MD Jan 29, 2017 13:25
[2017-01-29] MEDS: cloNIDine HCL 0.1 MG TAB PO SCH ×2 (14:25→23:14)
--- NOTE | 2017-01-29 18:04 | HHI.PR ---
Subjective Remarks Stated he still coughing but not able to bring the phlegm Still wheezing will continue on tapering Solu-Medrol dropped to 40 mg once a day Will switch to prednisone tomorrow hopefully discharge home Objective Vitals Vital Signs Date Time Temp Pulse Resp B/P Pulse Ox O2 Delivery O2 Flow Rate FiO2 01/29/17 12:00 97.5 62 18 162/84 92 01/29/17 08:00 151 01/29/17 08:00 Nasal Cannula 2.00 01/29/17 08:00 98.0 66 18 152/86 92 01/29/17 07:44 92 Nasal Cannula 3.00 01/29/17 04:00 98.3 61 18 178/85 92 01/29/17 00:00 97.8 68 18 168/82 92 01/28/17 20:35 Nasal Cannula 3.00 01/28/17 20:00 98.1 73 18 158/83 94 01/28/17 20:00 73 01/28/17 19:43 93 Nasal Cannula 3.00 I/O 01/28/17 01/28/17 01/28/17 01/29/17 01/29/17 01/29/17 07:00 15:00 23:00 07:00 15:00 23:00 Intake Total 1226 ml 1203 ml 626 ml 1416 ml Output Total 650 ml 625 ml 800 ml 1250 ml Balance 576 ml 578 ml -174 ml 166 ml Intake Oral 240 ml 720 ml 240 ml 480 ml IV Total 986 ml 483 ml 386 ml 936 ml Output Urine Total 650 ml 625 ml 800 ml 1250 ml # Voids 2 # Bowel Movements 0 0 0 Result Diagram: 01/29/17 0734 01/29/17 0734 Objective Remarks - GENERAL: This is a well-nourished, well-developed patient, in no apparent distress. SKIN: No rashes, warm and dry HEAD: Atraumatic. Normocephalic. EYES: Pupils equal round and reactive. Extraocular motions intact. No scleral icterus. ENT: Nose without bleeding, or drainage, Airway patent. NECK: Trachea midline. Supple CARDIOVASCULAR: Regular rate and rhythm without murmurs, gallops, or rubs. RESPIRATORY: Fair air entry bilaterally. Mild wheezes appreciated GASTROINTESTINAL: Abdomen soft, non-tender, nondistended. Positive bowel sounds MUSCULOSKELETAL: Extremities without clubbing, cyanosis, or edema. Pedal pulses appreciated NEUROLOGICAL: Awake and alert. Moves all extremity. Normal speech.no focal neurological deficit A/P Assessment and Plan 12/28: Stable continue current care with Solu-Medrol iv antibiotic, creatinine improved 1.68-1.44 12/29: Decreased Solu-Medrol to 40 mg once daily will switch to prednisone tomorrow, hopefully discharge her on by mouth antibiotic in a.m. Blood pressure still uncontrolled will add clonidine scheduled we'll not resume hydrochlorothiazide due to hypernatremia A/P: 71 years old male transferred from intensive care service to hospitalist service patient came with Respiratory failure due to pneumonia and COPD exacerbation -Continue O2 DuoNeb, Solu-Medrol - Monitor for any fever or worsening hypoxia - Broad-spectrum antibiotics - Pulmonary consultation appreciated COPD exacerbation - Nebulizer treatment - IV Steroid - Follow-up on cultures Pneumonia - Zosyn and vancomycin azithromycin - Repeat CXR a.m. - Follow-up cultures History of CHF - Monitor for fluid overload - Strict blood pressure control DVT GI prophylaxis - Subcutaneous heparin and Pepcid Discharge Planning In a.m. on by mouth antibiotic and tapering prednisone David Ivy MD Jan 29, 2017 18:04
--- NOTE | 2017-01-29 20:05 | HHI.PR ---
Subjective Remarks 71 YOWM with COPD, Pn, Flu Feels better no fever Ambulates Objective Vital Signs Vital Signs Date Time Temp Pulse Resp B/P Pulse Ox O2 Delivery O2 Flow Rate FiO2 01/29/17 16:00 97.6 64 20 154/75 94 01/29/17 12:00 97.5 62 18 162/84 92 01/29/17 08:00 151 01/29/17 08:00 Nasal Cannula 2.00 01/29/17 08:00 98.0 66 18 152/86 92 01/29/17 07:44 92 Nasal Cannula 3.00 01/29/17 04:00 98.3 61 18 178/85 92 01/29/17 00:00 97.8 68 18 168/82 92 01/28/17 20:35 Nasal Cannula 3.00 I/O 01/28/17 01/28/17 01/28/17 01/29/17 01/29/17 01/29/17 07:00 15:00 23:00 07:00 15:00 23:00 Intake Total 1226 ml 1203 ml 626 ml 1416 ml 720 ml Output Total 650 ml 625 ml 800 ml 1250 ml 600 ml Balance 576 ml 578 ml -174 ml 166 ml 120 ml Intake Oral 240 ml 720 ml 240 ml 480 ml 720 ml IV Total 986 ml 483 ml 386 ml 936 ml Output Urine Total 650 ml 625 ml 800 ml 1250 ml 600 ml # Voids 2 # Bowel Movements 0 0 0 0 Result Diagram: 01/29/17 0734 01/29/17 0734 Objective Remarks GENERAL: WBWN Wm,NAD SKIN: Warm and dry. HEAD: Normocephalic. EYES: No scleral icterus. No injection or drainage. NECK: Supple, trachea midline. No JVD or lymphadenopathy. CARDIOVASCULAR: Regular rate and rhythm without murmurs, gallops, or rubs. RESPIRATORY: Breath sounds equal bilaterally. No accessory muscle use. GASTROINTESTINAL: Abdomen soft, non-tender, nondistended. MUSCULOSKELETAL: No cyanosis, or edema. BACK: Nontender without obvious deformity. No CVA tenderness. A/P Assessment and Plan COPD Exac Pneumonia Flu DM HTN Nicotine use PLAN: Cont abx Tamiflu 75 mg bid Aerosol nebs IV Solumedrol Wean 02 Federico Peralta MD Jan 29, 2017 20:05
[2017-01-29] MEDS: MONTELUKAST SODIUM 10 MG TAB PO SCH (23:14)
[2017-01-30] VITALS (7 sets, daily range): BP systolic 125–157; BP diastolic 66–92; PULSE 59–72; RESP 18; TEMP 97.3–98.1; O2SAT 92–96
[2017-01-30] MEDS: OSELTAMIVIR PHOSPHATE 75 MG CAP PO SCH (02:48)
[2017-01-30] MEDS: CHLORHEXIDINE GLUCONATE 2 % 1 PACK (2 CLOTHS) TOP SCH (04:00)
[2017-01-30] MEDS: SODIUM CHLOR 0.9% 1000 ML INJ 1,000 ML IV SCH (04:22)
[2017-01-30] MEDS: INSULIN ASPART SUPPLEMENTAL SCALE SQ SCH ×2 (06:00→12:00)
[2017-01-30] MEDS: HEPARIN SODIUM - SQ 10,000 UNITS/ML VIAL SQ SCH (06:03)
[2017-01-30] MEDS: RESP: ALBUTEROL 2.5 MG/IPRATROPIUM 0.5 MG NEB (SCH) INH ×3 (07:38→15:18)
[2017-01-30] MEDS ORDERED: PRED10PA PO (08:15)
[2017-01-30] MEDS ORDERED: OSEL75 PO (08:15)
[2017-01-30] MEDS ORDERED: LEVA750T PO (08:15)
[2017-01-30] MEDS: cloNIDine HCL 0.1 MG TAB PO SCH (08:17)
[2017-01-30] MEDS: THEOPHYLLINE ER 12 HR 300 MG TABCR PO SCH (08:17)
[2017-01-30] MEDS: CYANOCOBALAMIN 1,000 MCG TAB PO SCH (08:17)
[2017-01-30] MEDS: FAMOTIDINE 20 MG/2 ML VIAL IV PUSH SCH (08:17)
[2017-01-30] MEDS: SODIUM CHLORIDE 0.9% FLUSH 10 ML FLUSH IV FLUSH SCH (08:18)
[2017-01-30] MEDS ORDERED: CLON.1 PO (08:18)
--- NOTE | 2017-01-30 08:20 | HHI.DS ---
Discharge Summary Admission Date Jan 26, 2017 at 02:10 Discharge Date: Jan 30, 2017 Admitting Diagnosis pneumonia. Sepsis. Renal insufficiency. Flu (1) Flu ICD Code: J11.1 (2) Sepsis ICD Code: A41.9 (3) Pneumonia ICD Code: J18.9 Procedures none Brief History - From Admission 71-year-old male with history of COPD complains of shortness of breath. Patient has started having shortness of breath for the past several days. Patient states that the shortness of breath got progressively worse since then so he could barely continue to smoke. Patient states that he has an inhaler and nebulizer machine at home and he used inhaler once in a while and last use of nebulizer machine was yesterday. He also has intermittent dry cough but he denies any fever chills. CBC/BMP: 01/29/17 0734 01/29/17 0734 Significant Findings Laboratory Tests Test 01/29/17 01/29/17 03:09 07:34 Estimat Glomerular Filtration 59 ML/MIN (>89) 51 ML/MIN (>89) Rate Vancomycin Level Trough 11.4 MCG/ML (5.0-10.0) White Blood Count 12.7 TH/MM3 (4.0-11.0) Neutrophils (%) (Auto) 84.2 % (16.0-70.0) Neutrophils # (Auto) 10.7 TH/MM3 (1.8-7.7) Neutrophils % (Manual) 79 % (16-70) Neutrophils # (Manual) 10.4 TH/MM3 (1.8-7.7) Metamyelocytes 2 % (0-1) Myelocytes 1 % (0-0) Nucleated Red Blood Cells 1 /100 WBC (0-0) Sodium Level 146 MEQ/L (136-145) Chloride Level 109 MEQ/L (98-107) Blood Urea Nitrogen 23 MG/DL (7-18) Creatinine 1.37 MG/DL (0.60-1.30) Random Glucose 154 MG/DL (74-106) Calcium Level 8.4 MG/DL (8.5-10.1) PE at Discharge - GENERAL: This is a well-nourished, well-developed patient, in no apparent distress. SKIN: No rashes, warm and dry HEAD: Atraumatic. Normocephalic. EYES: Pupils equal round and reactive. Extraocular motions intact. No scleral icterus. ENT: Nose without bleeding, or drainage, Airway patent. NECK: Trachea midline. Supple CARDIOVASCULAR: Regular rate and rhythm without murmurs, gallops, or rubs. RESPIRATORY: Fair air entry bilaterally. Mild wheezes appreciated GASTROINTESTINAL: Abdomen soft, non-tender, nondistended. Positive bowel sounds MUSCULOSKELETAL: Extremities without clubbing, cyanosis, or edema. Pedal pulses appreciated NEUROLOGICAL: Awake and alert. Moves all extremity. Normal speech.no focal neurological deficit Hospital Course 71 years old male admitted with respiratory failure he was found to have positive flu infection with superimposed pneumonia, pulmonary and ID consulted, patient started the antibiotic, Solu-Medrol iv, DuoNeb, oxygen, patient gradually improved and switch jackson antibiotic per ID, to be discharged on tapering prednisone dose to follow up with pulmonology and PCP Discussed with pulmonology cleared by him for discharge as well as ID Perform walking test on day of discharge patient failed, oxygen ordered [id number] encounter performed with the patient on discharge day, as well as physical exam, summary of hospitalization course and postdischarge plan has been D/W the patient. D/W nurse D/W caseworker intake. Discharge medications reviewed and printed and signed, post discharge follow up visit with PCP and other specialist as well as Brief hospital course and discharge summary has been placed. Pt Condition on Discharge: Good Discharge Disposition: Discharge Home Discharge Time: > 30 minutes Discharge Instructions DIET: Follow Instructions for: Heart Healthy Diet, Diabetic Diet Activities you can perform: Weight Bearing as Meaghan Follow up Referrals: Pulmonology - 10 Days with Federico Peralta MD New Medications: Prednisone (21) 10 mg tab Dose Pack (Prednisone (21) 10 mg tab Dose Pack) 10 Mg Pack 10 MG PO DIRECTED Inflammation #1 Ref 0 DSPK Clonidine (Catapres) 0.1 Mg Tab 0.1 MG PO q8h htn #90 TAB Levofloxacin (Levaquin) 750 Mg Tab 750 MG PO DAILY pna #7 TAB Oseltamivir (Tamiflu) 75 Mg Cap 75 MG PO Q24H flu #5 CAP Continued Medications: Amlodipine (Amlodipine) 10 Mg Tab 10 MG PO DAILY Blood Pressure Management #30 Ref 0 TAB Budesonide-Formoterol Inh (Symbicort Inh) 80-4.5 Mcg/Act Aero 1 PUFF INH Q12HR Asthma Management #1 Ref 0 INHALER Calcium Carbonate-Cholecalciferol (Caltrate 600+D) 600-800 Mg-Unit Tab 1 TAB PO BID Calcium Supplement Ref 0 TAB Cholecalciferol (Vitamin D) 400 Unit Tab 400 MG PO DAILY Cyanocobalamin (B-12) 1,000 Mcg Lozg 1000 MCG BUCCAL DAILY Nutritional Supplement #1 Ref 0 BOTTLE Glipizide (Glipizide) 10 Mg Tab 10 MG PO BID Take 30 minutes before a meal Blood Sugar Management #60 Ref 0 TAB Hydrochlorothiazide (Hydrochlorothiazide) 25 Mg Tab 25 MG PO DAILY #30 Ref 0 TAB Ipratropium-Albuterol Inh (Combivent Respimat Inh) 20-100 Jail/Act Aero 2 PUFF INH BID Asthma Management #1 Ref 0 INHALER Metoclopramide (Metoclopramide) 10 Mg Tab 10 MG PO qhsac Ref 0 TAB Montelukast (Singulair) 10 Mg Tab 10 MG PO HS #30 Ref 0 TAB Pantoprazole (Protonix) 40 Mg Tab 40 MG PO DAILY Reflux #30 Ref 0 TAB Potassium Chloride ER (Potassium Chloride CR) 10 Meq Tab 10 MEQ PO DAILY TAB Theophylline ER 12 HR (Theophylline CR) 300 Mg Tab 300 MG PO DAILY #60 Ref 0 TAB Vitamins C & E (Cranberry Urinary Comfort) 1 Cap 1 CAP PO DAILY Urinary Symptom Managemen Ref 0 CAP David Ivy MD Jan 30, 2017 08:20
[2017-01-30] MEDS ORDERED: methylPREDNISolone SOD SUCC 40 MG/1 ML VIAL IV PUSH SCH (09:00)
[2017-01-30] MEDS ORDERED: LEVOFLOXACIN 750 MG TAB PO SCH (09:00)
[2017-01-30] MEDS ORDERED: OXYGENTANK NAS.CANULA (10:12)
[2017-01-31] MEDS ORDERED: PHARMACY ORDERED LAB ONE (02:45)
--- NOTE | 2017-02-14 16:52 | PQ ---
Physician Query Response Document PATIENT: DAWSON LAZARO : 1945 ADMIT DATE: 01/26/2017 2:10 AM DISCH DATE: 01/30/2017 5:05 PM RESPONDING PROVIDER #: ayan QUERY TEXT: Respiratory Failure Acuity and Type Respiratory Failure is documented in the Medical Record. Please specify the type and acuity (includes suspected or probable) Such as: -- Acute respiratory failure - With hypoxia - With hypercapnia -- Chronic respiratory failure - With hypoxia - With hypercapnia -- Acute on chronic respiratory failure - With hypoxia - With hypercapnia -- Other, please specify If you have any additional questions/comments and/or concerns, please do not hesitate to reach out to the CDI/Coding Hotline, Ext. [phone]. The patient's Clinical Indicators include: H Respiratory failure - Due to COPD exacerbation - Due to Pneumonia ED Report documents: Patient has history of COPD. Patient is a smoker. Patient states that he starte d having shortness of breath for the past several days. Progress Note of 01/27/17 documents: Respiratory failure due to pneumonia and COPD exacerbation -Continue O2 DuoNeb, Solu-Medrol - Monitor for any fever or worsening hypoxia On nasal cannula O2 at 3L, pulse oximetry on admission 92%. Query created by: Kalie Hinojosa on 01/31/2017 3:33 PM RESPONSE TEXT: Acute on chronic respiratory failure due to COPD exacerbation , flu and pna QUERY TEXT: Diabetes Type Diabetes is documented in the Medical Record. Please specify the type Such as: -- Type I diabetes mellitus -- Type II diabetes mellitus -- Diabetes due to drug or chemicals -- Diabetes due to an underlying medical condition -- Other, please specify If you have any additional questions/comments and/or concerns, please do not hesitate to reach out to the CDI/Coding Hotline, Ext. [phone]. The patient's Clinical Indicators include: Dr. Peralta's consult documents: IMPRESSION : 6. Diabetes mellitus This is the ONLY mention of diabetes in this record, no mention in Past Medical History and on no gaby betes meds at home. Patient admitted with COPD exacerbation and pneumonia, was placed on steroids in the hospital. Bloo d sugars were monitored with insulin coverage documented on Medication Record and in Nursing notes. From Discharge Summary: Patient was discharged on tapering prednisone dose to follow up with pulmono logy and PCP. Also discharged on: Glipizide (Glipizide) 10 Mg Tab 10 MG PO BID Take 30 minutes before a meal Blood Sugar Management #60 Ref 0 TAB Query created by: Kalie Hinojosa on 01/31/2017 3:50 PM RESPONSE TEXT: Per the Pt he does not have DM , but steroid induced hyperglycemia . However 6 tears ago he had an A1 c 13 which is consistent with DM type 2 probably Electronically signed by: David Ivy MD 02/14/2017 4:48 PM
== END 2017-01-30 17:05 | disposition home or self-care (01) | DRG 871 ==
LOC: NEPC 23:30 → NEDA 01-26 02:10 → N03B 01-26 04:18 → N04A 01-27 12:58
PROVIDERS: ADMIT Hospitalist; ATTEND Hospitalist
DX: A41.9 Sepsis, unspecified organism (principal); J18.9 Pneumonia, unspecified organism; J96.91 Respiratory failure, unspecified with hypoxia; J10.00 Influenza due to other identified influenza virus with unspecified type of pneumonia; E87.0 Hyperosmolality and hypernatremia; I50.9 Heart failure, unspecified; J44.0 Chronic obstructive pulmonary disease with (acute) lower respiratory infection; J44.1 Chronic obstructive pulmonary disease with (acute) exacerbation; K31.84 Gastroparesis; F17.210 Nicotine dependence, cigarettes, uncomplicated; Z91.19 Patient's noncompliance with other medical treatment and regimen; E66.01 Morbid (severe) obesity due to excess calories; Z68.35 Body mass index [BMI] 35.0-35.9, adult; I10 Essential (primary) hypertension; N28.9 Disorder of kidney and ureter, unspecified; Z85.46 Personal history of malignant neoplasm of prostate
CPT/HCPCS: 71010; 76937; 80048; 80053; 80202; 81001; 82565; 82948; 83605; 83880; 85007; 85025; 85027; 85610; 85730; 87040; 87641; 87804; 93005; 94620; 94640; 94664; 96365; 96375; J0456; J1644; J1720; J1815; J2543; J2920; J2930; J3370; J7030; J7040; J7050